=== PATIENT | female | born 1940 | race Caucasian/White ===

== ENCOUNTER → 2017-05-03 | Outpatient (CLI) | payer OTHER ==
[~2017-05-03] VITALS: Ht 165.1 cm; Wt 97.9 kg
[~2017-05-03] MED LIST: ADVAIR 250-501 EACH INH; ADVAIR 500-501 EACH INH; ALBUTEROL2.5 MG/31 INH; AMARYL2 MG PO; ANASTROZOLE1 MG PO; ASPIR 8181 MG PO; ASPIRIN EC81 M1 PO; AZITHROMYCIN 2250 MG PO; CALCIUM 600 +1 EA11 PO; CALCIUM PO; CELEBREX 200 M200 M1 PO; CELEXA 20 MG TA20 M1 PO; CELEXA 20 MG TA20 MG PO; CINNAMON PO; CPAP MISCELL; CYMBALTA30 MG PO; FISH OIL 1,0001 EAC5 PO; FISH OIL 1,001000 M2 PO; HYDRALAZINE 5050 MG PO; HYDROCHLOROTHIA25 M2 PO; INCRUSE ELLI62.5 MCG IH; KEFLEX500 MG PO; LEVAQUIN 500 M500 M1 PO; LIPITOR10 MG PO; LISINOPRIL20 MG PO; MELOXICAM15 MG PO; MUCINEX TA600 MG/TA2 PO; MULTIVITAMINS PO; NEURONTIN 300300 M1 PO; NEXIUM40 MG PO; NORCO 5-325 TA1 EACH PO; NORFLEX100 MG PO; OMEGA 3-6-9 CO400 MG PO; OMEGA-31000 M1 PO; OMEPRAZOLE 20 M20 M1 PO; OMEPRAZOLE 20 M20 MG PO; OMEPRAZOLE40 MG PO; OXYBUTYNIN 5 MG5 M2 PO; PAXIL10 MG PO; PRAVACHOL40 MG PO; PREDNISONE 10 M10 M1 PO; PREDNISONE 10 M10 MG PO; PREDNISONE 20 M20 M1 PO; PREDNISONE 20 M20 MG PO; PRILOSEC40 MG PO; PROBIOTIC1 EAC1 PO; PROTONIX40 M2 PO; QUINU10 PD; RANITIDINE 150150 MG PO; SINGULAIR 10 MG10 M1 PO; SPIRIVA INH; SULINDAC 200MG200 M1 PO; THEOPHYLLINE S200 M1 PO; TRAMADOL 50 MG50 MG PO; TYLENOL W/CODEI1 TA2 PO; VENTOLIN HFA 1818 GM INH; ZANTAC 150MG T150 MG PO; calcium
--- NOTE | ~2017-05-03 | HPC ---
[facility] [address] [place] [address] PAIN MANAGEMENT CONSULTATION Name: SHAGGY VILLARREAL Room #: REG [facility].#: [id number] Admission: 05/03/17 Attend Phys: Flavio Hutchins DO Discharge: Date of : 38 Report #: [id number] THIS REPORT FOR: //name// CC: Flavio Cheng MD DATE OF SERVICE: 05/03/2017 REFERRING PHYSICIAN: Fabrizio Cheng MD CHIEF COMPLAINT: Low back pain, left lower extremity pain and paresthesias. HISTORY OF PRESENT ILLNESS: As you know, the patient is a 76-year-old female who has had a longstanding history of low back pain, left lower extremity pain with paresthesias. The patient indicates pain began on April 13. The patient indicates pain began in low back, radiated down the left leg. She indicates that despite conservative medical therapy through her PCP, she has not seen improvement in symptoms. She has been referred to our clinic for suspected lumbar radiculopathy, she comes without imaging studies to assist diagnosis and treatment. She indicates today pain is steady and constant, describes the pain as burning, shooting, aching, throbbing, stabbing, pounding, sharp and tender, places current pain score 10/10, daily average at 10/10, worst pain has been is 10/10. The patient states that standing, walking, and sitting exacerbate symptoms, nothing tends to improve pain. She has been referred to our service by her primary care physician for evaluation. PAST MEDICAL HISTORY: 1. Diabetes mellitus type 2. 2. Asthma. 3. Hypertension. 4. Degenerative joint disease. 5. Osteoarthritis. 6. History of cancer. PAST SURGICAL HISTORY: 1. Lumpectomy. 2. Neck surgery. 3. Hysterectomy. SOCIAL HISTORY: The patient denies tobacco, alcohol, IV or illicit drug use. 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 She has been out of work for nearly a month secondary to ongoing pain issues. She indicates she is not receiving workmen's compensation nor is she trying to obtain disability benefits. She is accompanied by her daughter who is present in room today. [address] [address] PAIN MANAGEMENT CONSULTATION Name: SHAGGY VILLARREAL Room #: REG [facility] Sally#: [id number] Admission: 05/03/17 Attend Phys: Flavio Hutchins DO Discharge: Date of : 38 Report #: [id number] REVIEW OF SYSTEMS: Positive for fatigue and weakness, wearing corrective eyewear, mouth sores, shortness of breath with walking or lying flat, asthma, wheezing, frequent urination, incontinence and dribbling to urine, varicose veins, depression, non-insulin dependent diabetes, heat and cold intolerance, low back pain, left lower extremity pain with paresthesias, difficulty with ambulation secondary to pain. All other review of systems negative per 12-point review of systems other than those listed in history of present illness. PAIN IMPACT SCORE: 59/70 indicating severe interference of daily activities secondary to pain. ALLERGIES: IODINE and SHELLFISH. CURRENT MEDICATIONS: Tylenol 3 one tab every 6 hours p.r.n. for pain, gabapentin 300 mg twice a day, omega-3 fish oil 1 tab per day, tiotropium bromide 1 inhalation kit per day, Advair 250/50 one puff b.i.d., albuterol 2 puffs q.4 hours p.r.n., aspirin 81 mg per day, Meloxicam 15 mg once a day, hydrochlorothiazide 25 mg per day, simvastatin 10 mg per day, omeprazole 20 mg per day, duloxetine 30 mg once a day. PQRS: The patient does have a history of osteoarthritis, no rheumatoid arthritis. She is not a fall risk, has not had a fall in the past 3 months. She ambulates well. She is not on blood thinners. She does have no history of hypertension, though blood pressure is elevated today. Risk assessment tool shows as a low risk for opioid abuse. Functional assessment tool shows a 59/70, severe interference. PHYSICAL EXAMINATION: VITAL SIGNS: Blood pressure 146/66, pulse 89, respiratory rate 20 and unlabored, the patient is 97% on room air, height 5 feet 5 inches tall, weight 215.8 pounds, and BMI calculated 35.9. GENERAL: Well-developed, well-nourished, well-hydrated, exogenously obese 76-year-old female, she appears her stated age, placing current pain score 10/10. HEENT: Normocephalic, atraumatic. Pupils are equal, round, and reactive to light. Extraocular muscles are intact. Sclerae are nonicteric without injection. NEUROLOGIC: Cranial nerves 2-12 are grossly intact. Speech is fluent. The patient deemed a fair historian. LUNGS: Clear, no wheeze, rhonchi or rales. CARDIOVASCULAR: Regular. No appreciable gallop or rub. ABDOMEN: Soft, obese, nontender, nondistended, normoactive bowel sounds. EXTREMITIES: Show no clubbing, no cyanosis, and no edema. MUSCULOSKELETAL: Seated straight leg raising negative. Supine straight leg raising mildly positive left. Roxann's test negative. Gait is mildly antalgic favoring left lower extremity over right. Ankle clonus negative. Babinski is [address] [place] [address] PAIN MANAGEMENT CONSULTATION Name: SHAGGY VILLARREAL Room #: REG [facility]#: [id number] Admission: 05/03/17 Attend Phys: Flavio Hutchins DO Discharge: Date of : 38 Report #: [id number]. Deep tendon reflexes are symmetrical at patella and Achilles. Lumbar provocation testing including extension, rotation, and lateral flexion all intensify axial back pain, no radiation of symptoms. ASSESSMENT: 1. Lumbar radiculopathy. 2. Degeneration of the lumbar spine. 3. Left lower extremity peripheral neuropathy. 4. Chronic intractable pain. PLAN: 1. The patient has been referred to our service with low back pain, left lower extremity pain with paresthesias. Unfortunately, the patient comes to us today without definitive imaging studies. She has had some conservative treatment options at her home, but has not filled a formalized physical therapy program. She is currently on Meloxicam, which is helping with her baseline osteoarthritis, but has provided no improvement in symptoms of her low back and left lower extremity symptoms. She has been referred to discuss options for treatment for suspected lumbar radiculopathy. The patient and I discussed at length the general treatment options for lumbar radiculopathy. These would include physical therapy, stretching exercise, core strengthening and a concerted effort at weight loss. We discussed medication changes, increasing her gabapentin to help with neuropathic pain control. We discussed epidural injections under fluoroscopic guidance and surgical options. After this discussion, we did determine that further imaging would be necessary before moving forward with. The patient will be sent for MRI of lumbar spine without contrast. Once this has been completed, the patient will return to review the findings and discuss options for treatment based on the specific pathology that is present. The patient was amenable to this idea and does wish to move forward with imaging before undergoing any interventional treatments. 2. No medication changes were made at today's visit. The patient will continue current medical therapy as previously prescribed. 3. The patient will return to our clinic once she has completed her imaging study. We will review the findings at that time and discuss specifics based on the pathology that is noted in the imaging. 4. We wish to thank Dr. Cheng for the referral of this patient to our clinic, we will keep you apprised of her response to treatment as we address suspected lumbar radiculopathy. Again, we wish to thank you for the opportunity to see this patient in consultation. <ELECTRONICALLY SIGNED> By: Flavio Hutchins DO 05/11/17 1130 [id number] [id number] Flavio Hutchins DO /nt
[2017-05-03 13:44] VITALS: BP 146/66
== END ==
LOC: PAIN 07:15
DX: M54.16 Radiculopathy, lumbar region (principal); M47.896 Other spondylosis, lumbar region; G89.29 Other chronic pain; G62.89 Other specified polyneuropathies; E11.9 Type 2 diabetes mellitus without complications; J45.909 Unspecified asthma, uncomplicated; I10 Essential (primary) hypertension; Z90.710 Acquired absence of both cervix and uterus; Z98.890 Other specified postprocedural states

== ENCOUNTER → 2017-05-10 | Outpatient (CLI) | payer OTHER ==
[~2017-05-10] VITALS: Ht 170.2 cm; Wt 98.0 kg
--- NOTE | ~2017-05-10 | HPC ---
[facility] [place] [address] PAIN MANAGEMENT CONSULTATION Name: SHAGGY VILLARREAL [facility] [id number] Admission: 05/10/17 Attend Phys: Flavio Hutchins DO Discharge: Date of : 38 Report #: [id number] THIS REPORT FOR: //name// CC: Flavio Cheng MD DATE OF SERVICE: 05/10/2017 REFERRING PHYSICIAN: Fabrizio Cheng M.D. CHIEF COMPLAINT: Low back pain, left lower extremity pain and paresthesias. HISTORY OF PRESENT ILLNESS: As you know, the patient is a 76-year-old female with longstanding history of low back pain. She has left lower extremity pain. The patient was last seen in our clinic per the request of her primary care physician for evaluation for suspected lumbar radiculopathy. The patient did not have any imaging studies available and she was subsequently sent for MRI. She returns today in followup visit with MRI imaging now reporting a loss of bladder continence and fecal incontinence. She indicates pain now at a level of 9/10, states pain is constant, shooting, sharp, stabbing and numbing in sensation, exacerbated with walking, standing, sitting. Nothing appears to improve the symptoms. She has been brought back to our clinic today with MRI that was obtained yesterday. Discussed options for treatment. ALLERGIES: IODINE AND SHELLFISH. CURRENT MEDICATIONS: Tylenol No. 3, gabapentin, omega 3 fish oil, tiotropium bromide, fluticasone, albuterol, aspirin, Meloxicam, hydrochlorothiazide, atorvastatin, omeprazole, duloxetine. SOCIAL HISTORY: The patient denies current tobacco use. Denies IV or illicit drug use. She was working until a month ago. She is accompanied by her daughter who is present in the room today. IMAGING: MRI of the lumbar spine obtained 05/09/2017, shows L1-L2 with facet arthropathy. No central canal neural foraminal stenosis. L2-L3, there is a disk protrusion, annular tear at the level. There is a 10-mm epidural mass, left lateral recess extending into the left neural foramen which is likely the basis of extrusion, results in severe left neural foraminal stenosis with effacement. L3-L4 facet arthropathy without spinal canal neural foraminal stenosis. L4-L5 grade 1 anterolisthesis secondary to advanced osteoarthritis, bilateral subarticular zone stenosis, mild central canal stenosis, L5-S1 facet arthropathy, otherwise normal. PQRS: The patient has a history of osteoarthritis, [place] [address] PAIN MANAGEMENT CONSULTATION Name: SHAGGY VILLARREAL Room #: REG [facility] Sally#: [id number] Admission: 05/10/17 Attend Phys: Flavio Hutchins DO Discharge: Date of : 38 Report #: [id number] She is not a fall risk, has not had a fall in the last 3 months, but does indicate weakness bilaterally, left greater than right in the lower extremities. She is not on a blood thinner. She has no history of hypertension. She has been on opioid therapy for greater than 6 weeks. She is not on opioid contract with our services. PHYSICAL EXAMINATION: VITAL SIGNS: Blood pressure 143/79, pulse 84, respiratory rate 15, unlabored. The patient is 95% on room air. Height 5 feet 7 inches tall, weight 216 pounds, BMI calculated 33.8. GENERAL: Well-developed, well-nourished, well-hydrated exogenously obese 76-year-old female. She appears stated age, placing current pain score 9/10. HEENT: Normocephalic, atraumatic. Pupils equal, round, reactive to light. Extraocular muscles are intact. Sclerae nonicteric, without injection. EXTREMITIES: Show no clubbing, no cyanosis, no edema. MUSCULOSKELETAL: There is bilateral lower extremity equal and symmetrical muscle tone, mild give-away strength on the left when compared to the right. This is noted with increasing left leg pain. Seated straight leg raising positive on the left. Supine straight leg raising positive on the left. Roxann test negative. Modified Gaenslen's positive for axial low back pain. ASSESSMENT: 1. Symptomatic lumbar radiculopathy. 2. Spinal stenosis of lumbar spine. 3. Displacement of lumbar intervertebral disk with radiculopathy. 4. Lumbosacral spondylosis with radiculopathy. 5. Facet arthropathy of lower lumbar spine. 6. Neural foraminal stenosis of lumbar spine. 7. Chronic intractable pain. PLAN: 1. The patient has returned today in followup visit where we have sat and discussed the findings on the MRI. After completing the discussion of the MRI with the findings at the L2-L3 level most concerning, the patient reports that she has had a loss of bladder function. This has progressively worsened over the past month and now is having difficulty maintaining urinary control. She also relays information recently of a complete loss of bowel without having any sensation that she had a bowel movement. She apparently returned home where she noted fecal material within the underwear. The combination of bowel and bladder incontinence along with the increasing weakness the patient experiencing is quite concerning of a central canal stenosis with early development of possible Cauda equina syndrome though the patient is experiencing numbness and tingling in the perineal area, she is now experiencing increasing bladder incontinence beyond her typical stress incontinence, this in conjunction with the new bowel incontinence has made this case more concerning. I have taken the liberty of contacting neurosurgery in regards to the patient's condition. I do feel that [facility] [address] [place] [address] PAIN MANAGEMENT CONSULTATION Name: SHAGGY VILLARREAL Room #: REG [facility] Taryn.#: [id number] Admission: 05/10/17 Attend Phys: Flavio Hutchins DO Discharge: Date of : 38 Report #: [id number] early intervention in this patient's case would be most important, certainly interventional treatment such as epidurals may improve the patient's symptoms, but given the new bowel and bladder issues and the increasing numbness and tingling in the perineal area, I am very concerned of early onset of Cauda equina syndrome and I do feel the patient needs to be evaluated further. After discussion with the neurosurgery team, they advised the patient to head directly to [facility] ER where they can evaluate the patient more fully. I have requested the patient take the MRI disk and official interpretation with her to the ER to present when she gets there. The MRI is only a day old and that should give the physicians enough information. 2. I have made no changes in the patient's medical therapy. She is to continue current medical therapy as previously prescribed. 3. We will see the patient back in followup visit on an as-needed basis. Certainly, we will be available if surgery options are not recommended at this time for a possible epidural injection, though given the incontinence to both bowel and bladder, I am concerned of progressively worsening symptoms that need to be addressed surgically. We will await the discussion with neurosurgery. <ELECTRONICALLY SIGNED> By: Flavio Hutchins DO 05/11/17 1131 1246 1619 Flavio Hutchins DO /nt
[2017-05-10 11:30] VITALS: BP 143/79
== END ==
LOC: PAIN 06:48
DX: M48.061 Spinal stenosis, lumbar region without neurogenic claudication (principal); M51.16 Intervertebral disc disorders with radiculopathy, lumbar region; M47.27 Other spondylosis with radiculopathy, lumbosacral region; G89.29 Other chronic pain

== ENCOUNTER 2017-10-06 12:01 | Inpatient (IN) | payer OTHER ==
[~2017-10-06] VITALS: Ht 170.2 cm; Wt 109.4 kg
--- NOTE | ~2017-10-06 | EKG ---
[place] [address] [facility] [place] [address] ELECTROCARDIOGRAM REPORT Name: SHAGGY VILLARREAL Room #: REG [facility]#: [id number] Admission: 10/06/17 Attend Phys: Discharge: Date of : 38 Report #: [id number] THIS REPORT FOR: //name// [facility] ED Test Date: 2017-10-06 Test Time: 12:16:35 Pat Name: SHAGGY VILLARREAL Department: Room: Gender: F Perforator Loader: [email or web address] : 1940 Requested By: Gemma Burton Order Number: [id number] MD: Dano Velasco Measurements Intervals [place] Rate: 96 P: 73 [place]: 143 QRS: 38 QRSD: 91 T: 52 QT: 351 QTc: 444 Interpretive Statements Sinus rhythm Minimal ST elevation, lateral leads Compared to ECG 05/26/2016 10:16:39 ST (T wave) deviation now present Sinus tachycardia no longer present Electronically Signed On 10-06-2017 13:10:05 CDT by Dano Velasco [email or web address] <ELECTRONICALLY SIGNED> By: Dano Velasco MD 10/06/17 1310 15 15 Dano Velasco MD /ANNIE
--- NOTE | ~2017-10-06 | H ---
[facility] [place] [address] HISTORY AND PHYSICAL Name: SHAGGY VILLARREAL Room #: 200-I ADM IN .R.#: [id number] Admission: 10/06/17 Attend Phys: Darvin Lebron MD Discharge: Date of : 38 Report #: [id number] THIS REPORT FOR: //name// CC: Fabrizio Lebron DATE OF SERVICE: 10/06/2017 CHIEF COMPLAINT: Shortness of breath. HISTORY OF PRESENT ILLNESS: The patient is a 77-year-old female with history of COPD and asthma who presented to the Emergency Room complaining of shortness of breath. Symptoms have been ongoing over the last 1 week. She has had cough, which is mostly dry, had a little subjective fever and chills. She has been using an inhaler at home without any relief. She had mild sore throat. No chest pain. No nausea, vomiting, abdominal pain. No recent travel. PAST MEDICAL HISTORY: Significant for hysterectomy, neck surgery, lumpectomy, COPD and asthma, history of dyslipidemia. No history of any coronary artery disease, no CVA. No peptic ulcer disease, bleeding disorder. ALLERGIES: SHE IS ALLERGIC TO IODINE AND SHELLFISH. SOCIAL HISTORY: No smoking, alcohol abuse, or illicit drug abuse. FAMILY HISTORY: Significant for hypertension. REVIEW OF SYSTEMS: CONSTITUTIONAL: No recent weight loss, weight gain. She has had some subjective fever and chills. EYES: No change in vision. THROAT: Mild sore throat. CARDIOVASCULAR: No chest pain, dizziness, palpitations. RESPIRATORY: As above. GASTROINTESTINAL: As above. No nausea or vomiting. GENITOURINARY: No dysuria, hematuria. NEUROLOGIC: No focal numbness or weakness of the extremities. PSYCHIATRIC: No anxiety or depression. The 12-point review of system is negative other than the positives and negatives dictated in the history of present illness and the review of system. PHYSICAL EXAMINATION: VITAL SIGNS: Reveal blood pressure 124/61, heart rate is in the 100 per minute, [address]febrile. [facility] [address] [place] [address] HISTORY AND PHYSICAL Name: SHAGGY VILLARREAL Room #: 200-I [facility] ..#: [id number] Admission: 10/06/17 Attend Phys: Darvin Lebron MD Discharge: Date of : 38 Report #: [id number] GENERAL: The patient is awake and alert. Presently, she is saturating 92% on 2 liters of oxygen. She is in mild respiratory distress. EYES: Pupils equal, reactive to light, nonicteric conjunctivae. NECK: Supple, no JVD, no bruit, no lymphadenopathy. CARDIOVASCULAR SYSTEM: S1, S2, negative S3, no murmur. CHEST: Bilateral air entry present. Expiration prolonged bilateral wheeze present. ABDOMEN: Soft, bowel sounds present, no mass, no organomegaly, no tenderness. PERIPHERY: No pedal edema, no calf tenderness. Dorsalis pedis 1+. NEUROLOGICAL: No gross motor or sensory deficit. LABORATORY DATA: Reviewed. Chest x-ray showed no acute process. White count is 8 with normal hemoglobin, hematocrit and platelets. Blood gas showed a pH of 7.45, pCO2 of 50 and pO2 of 68. Chemistry revealed a BUN of 21, creatinine of 1.3. Magnesium is 1.6. AST and ALT are within normal limits. ASSESSMENT AND PLAN: 1. Ibbka-wc-yinzdrm respiratory failure secondary to chronic obstructive pulmonary disease exacerbation. 2. Chronic obstructive pulmonary disease exacerbation. The patient will be continued on IV steroid and nebulizer treatment. The patient is also empirically started on IV antibiotic. Pulmonary will be consulted 3. Hypertension. The patient will be continued on hydrochlorothiazide. 4. Dyslipidemia. We will continue statin. 5. Deep venous thrombosis prophylaxis. She will be on Lovenox for deep venous thrombosis prophylaxis. 6. Hypomagnesemia. We will replace mag. 7. Mild elevation in lactic acid, likely secondary to her respiratory distress. We will repeat a lactic acid in 3 hours. <ELECTRONICALLY SIGNED> By: Darvin Lebron MD 10/07/17 1910 1645 6509 Darvin Lebron MD /nt
[~2017-10-06 12:01] MED LIST changes: -CPAP MISCELL; -HYDRALAZINE 5050 MG PO; -LISINOPRIL20 MG PO; -PREDNISONE 20 M20 M1 PO; -PREDNISONE 20 M20 MG PO
[2017-10-06 12:04] VITALS: BP 124/61
[2017-10-06] MEDS ORDERED: CPAP MISCELL ×2 (12:08→12:09)
[2017-10-06 12:34] LABS: ABSOLUTE NEUTROPHILS 4.6 thou/uL (1.4-8.2); BASOPHILS 0.9 % (0.0-2.0); EOSINOPHILS 5.8 % (0.0-3.0); HEMATOCRIT 36.9 % (37.0-47.0); HEMOGLOBIN 12.5 gm/dL (12.0-15.0); MCH 30.6 pg (26.0-34.0); MONOCYTES 8.3 % (1.0-8.0); PLATELET COUNT 224 thou/uL (150-400); RDW 13.4 % (10.5-14.5)
[2017-10-06 12:39] LABS: ANION GAP 5 mmol/L (7-16); BUN 21 mg/dL (7-18); CALCIUM 9.2 mg/dL (8.5-10.1); CHLORIDE 104 mmol/L (98-107); CO2 32 mmol/L (21-32); CREATININE 1.3 mg/dL (0.6-1.0); GLUCOSE 141 mg/dL (74-106); POTASSIUM 3.8 mmol/L (3.5-5.1); SODIUM 141 mmol/L (136-145)
[2017-10-06 12:48] LABS: ALBUMIN 3.4 g/dL (3.4-5.0); MAGNESIUM 1.6 mg/dL (1.8-2.4); SGOT 28 U/L (15-37); SGPT 29 U/L (30-65); TOTAL BILIRUBIN 0.3 mg/dL (<0.1-1.0); TOTAL PROTEIN 7.2 g/dL (6.4-8.2); TROPONIN-I <0.06 ng/mL (<0.06)
[2017-10-06 13:01] LABS: BE(vivo) 4.9 mmol/L (-2 to +3); HCO3 30.7 mmol/L (22.0-26.0); PCO2 50.2 mmHg (35.0-45.0); PO2 68.1 mmHg (80.0-100.0); pH 7.404 (7.360-7.450); sO2 93.5 % (92.0-98.0)
[2017-10-06 19:28] VITALS: BP 131/69
[2017-10-06 19:53] VITALS: BP 144/69
[2017-10-06 23:59] VITALS: BP 145/65
[2017-10-07 04:17] VITALS: BP 132/74
[2017-10-07 07:21] VITALS: BP 153/56
[2017-10-07 11:10] VITALS: BP 142/45
[2017-10-07 16:10] VITALS: BP 138/42
[2017-10-07 19:21] VITALS: BP 130/65
[2017-10-08 04:48] VITALS: BP 134/71
[2017-10-08 07:33] VITALS: BP 159/80
[2017-10-08 10:31] LABS: ABSOLUTE NEUTROPHILS 14.8 thou/uL (1.4-8.2); BASOPHILS 0.1 % (0.0-2.0); HEMATOCRIT 39.1 % (37.0-47.0); HEMOGLOBIN 12.6 gm/dL (12.0-15.0); LYMPHOCYTES 6.8 % (24.0-44.0); MCHC 32.3 g/dL (28.0-37.0); MCV 92.8 fL (80.0-100.0); MONOCYTES 3.2 % (1.0-8.0); PLATELET COUNT 250 thou/uL (150-400); POLYS 89.9 % (36.0-66.0); RBC 4.21 mil/uL (4.20-5.00); WBC 16.5 thou/uL (4.0-11.0)
[2017-10-08 10:47] LABS: ALBUMIN 3.4 g/dL (3.4-5.0); CALCIUM 9.2 mg/dL (8.5-10.1); CREATININE 1.3 mg/dL (0.6-1.0); PHOSPHORUS 2.7 mg/dL (2.5-4.9); POTASSIUM 4.2 mmol/L (3.5-5.1)
[2017-10-08 12:12] VITALS: BP 125/63
[2017-10-08 15:23] VITALS: BP 111/58
[2017-10-08 19:10] VITALS: BP 142/72
[2017-10-09 04:00] VITALS: BP 150/82
[2017-10-09 07:02] LABS: HEMATOCRIT 39.1 % (37.0-47.0); HEMOGLOBIN 13.3 gm/dL (12.0-15.0); MCH 31.4 pg (26.0-34.0); MCHC 34.1 g/dL (28.0-37.0); MCV 92.2 fL (80.0-100.0); PLATELET COUNT 249 thou/uL (150-400); RBC 4.25 mil/uL (4.20-5.00); RDW 13.7 % (10.5-14.5)
[2017-10-09 07:13] LABS: CREATININE 1.1 mg/dL (0.6-1.0); POTASSIUM 4.1 mmol/L (3.5-5.1)
[2017-10-09 07:37] VITALS: BP 163/72
[2017-10-09 08:33] LABS: ABSOLUTE NEUTROPHILS 10.8 thou/uL (1.4-8.2)
[2017-10-09 08:34] LABS: ANISOCYTOSIS SLIGHT; METAMYELOCYTES 1 %; POLYCHROMASIA OCCASIONAL
[2017-10-09 11:43] VITALS: BP 148/74
[2017-10-09 16:53] VITALS: BP 130/68
[2017-10-09 19:05] VITALS: BP 124/71
[2017-10-10 03:25] VITALS: BP 143/78
[2017-10-10 05:43] LABS: HEMATOCRIT 38.9 % (37.0-47.0); MCH 30.7 pg (26.0-34.0); MCHC 33.3 g/dL (28.0-37.0); MCV 92.1 fL (80.0-100.0); PLATELET COUNT 260 thou/uL (150-400); RBC 4.22 mil/uL (4.20-5.00); RDW 13.7 % (10.5-14.5); WBC 12.8 thou/uL (4.0-11.0)
[2017-10-10 05:57] LABS: CALCIUM 8.8 mg/dL (8.5-10.1); CREATININE 1.2 mg/dL (0.6-1.0); POTASSIUM 4.2 mmol/L (3.5-5.1)
[2017-10-10 07:11] VITALS: BP 155/67
[2017-10-10 08:23] LABS: ABSOLUTE NEUTROPHILS 10.6 thou/uL (1.4-8.2); PLATELET ESTIMATE NORMAL
[2017-10-10 11:37] VITALS: BP 104/75
[2017-10-10 15:57] VITALS: BP 145/77
[2017-10-10 19:31] VITALS: BP 149/74
[2017-10-11 03:41] VITALS: BP 149/73
[2017-10-11 04:30] LABS: HEMATOCRIT 38.9 % (37.0-47.0); MCH 30.5 pg (26.0-34.0); MCHC 33.3 g/dL (28.0-37.0); MCV 91.6 fL (80.0-100.0); PLATELET COUNT 244 thou/uL (150-400); RBC 4.25 mil/uL (4.20-5.00); RDW 13.7 % (10.5-14.5)
[2017-10-11 04:32] LABS: CALCIUM 8.9 mg/dL (8.5-10.1); CREATININE 1.3 mg/dL (0.6-1.0); POTASSIUM 4.3 mmol/L (3.5-5.1)
[2017-10-11 05:28] LABS: ABSOLUTE NEUTROPHILS 9.6 thou/uL (1.4-8.2); ATYPICAL LYMPHS 1 %; METAMYELOCYTES 2 %; MYELOCYTES 1 %
[2017-10-11 07:03] VITALS: BP 150/87
[2017-10-11] MEDS ORDERED: VENTOLIN HFA 1818 GM INH (12:17)
[2017-10-11] MEDS ORDERED: PREDNISONE 20 M20 MG PO (12:19)
[2017-10-11 12:24] VITALS: BP 137/69
[2017-10-11 12:33] VITALS: BP 150/87
[2017-10-11 12:49] VITALS: BP 150/87
[2017-10-11 13:25] VITALS: BP 150/87
== END 2017-10-11 13:45 | disposition home health service (06) | DRG 682 ==
LOC: ER 12:01 → 2N 13:51 → EROBS 13:51 → 2N 18:51
PROVIDERS: Hospitalist; Nurse Practitioner Family
DX: N17.9 Acute kidney failure, unspecified (principal); J96.21 Acute and chronic respiratory failure with hypoxia; J44.1 Chronic obstructive pulmonary disease with (acute) exacerbation; E83.42 Hypomagnesemia; R74.0 Nonspecific elevation of levels of transaminase and lactic acid dehydrogenase [LDH]; G47.33 Obstructive sleep apnea (adult) (pediatric); N18.9 Chronic kidney disease, unspecified; I12.9 Hypertensive chronic kidney disease with stage 1 through stage 4 chronic kidney disease, or unspecified chronic kidney disease; E78.00 Pure hypercholesterolemia, unspecified; F41.0 Panic disorder [episodic paroxysmal anxiety]; K21.9 Gastro-esophageal reflux disease without esophagitis; E66.9 Obesity, unspecified; G89.29 Other chronic pain; Z68.37 Body mass index [BMI] 37.0-37.9, adult; Z90.710 Acquired absence of both cervix and uterus; Z79.51 Long term (current) use of inhaled steroids; Z79.82 Long term (current) use of aspirin; Z79.899 Other long term (current) drug therapy; Z91.041 Radiographic dye allergy status; Z91.013 Allergy to seafood; Z82.49 Family history of ischemic heart disease and other diseases of the circulatory system
CPT/HCPCS: 10081

== ENCOUNTER 2018-01-23 13:00 | Inpatient (IN) | payer OTHER ==
[~2018-01-23] VITALS: Ht 170.2 cm; Wt 101.6 kg
--- NOTE | ~2018-01-23 | EKG ---
[address] [address] ELECTROCARDIOGRAM REPORT Name: SHAGGY VILLARREALBERNY Room #: PRE [facility]#: [id number] Admission: Attend Phys: Discharge: Date of : 38 Report #: [id number] THIS REPORT FOR: //name// [facility] ED Test Date: 2018-01-23 Test Time: 13:19:24 Pat Name: SHAGGY VILLARREAL Department: Room: Gender: F Stereo Operator: LATANYA : 1940 Requested By: Lonnie Rice Order Number: [id number] MD: Dano Velasco Measurements Intervals [place] Rate: 119 P: 54 SD: 146 QRS: 49 QRSD: 84 T: 47 QT: 311 QTc: 438 Interpretive Statements Sinus tachycardia Probable left atrial enlargement Compared to ECG 10/06/2017 12:16:35 Sinus rhythm no longer present ST (T wave) deviation no longer present Electronically Signed On 01-23-2018 13:31:25 CDT by Dano Velasco [email or web address] <ELECTRONICALLY SIGNED> By: Dano Velasco MD 01/23/18 1331 1319 18 Dano Velasco MD /ANNIE
[~2018-01-23 13:00] MED LIST changes: +CPAP MISCELL; +PREDNISONE 20 M20 MG PO
[2018-01-23 13:02] VITALS: BP 141/66
[2018-01-23 13:51] LABS: HEMOGLOBIN 11.4 gm/dL (12.0-15.0); MCH 30.3 pg (26.0-34.0); MCHC 33.6 g/dL (28.0-37.0); PLATELET COUNT 285 thou/uL (150-400); RBC 3.78 mil/uL (4.20-5.00); RDW 14.1 % (10.5-14.5)
[2018-01-23 13:54] LABS: BE(vivo) 6.8 mmol/L (-2 to +3); HCO3 30.6 mmol/L (22.0-26.0); PCO2 40.8 mmHg (35.0-45.0); PO2 59.2 mmHg (80.0-100.0); pH 7.493 (7.360-7.450); sO2 92.6 % (92.0-98.0)
[2018-01-23 14:02] LABS: ANION GAP 9 mmol/L (7-16); BUN 21 mg/dL (7-18); CALCIUM 9.4 mg/dL (8.5-10.1); CHLORIDE 96 mmol/L (98-107); CO2 31 mmol/L (21-32); CREATININE 1.4 mg/dL (0.6-1.0); GLUCOSE 149 mg/dL (74-106); POTASSIUM 3.8 mmol/L (3.5-5.1); SODIUM 136 mmol/L (136-145)
[2018-01-23 14:10] LABS: ALBUMIN 2.7 g/dL (3.4-5.0); SGOT 41 U/L (15-37); SGPT 39 U/L (30-65); TOTAL BILIRUBIN 0.5 mg/dL (<0.1-1.0); TOTAL PROTEIN 7.8 g/dL (6.4-8.2); TROPONIN-I <0.06 ng/mL (<0.06)
[2018-01-23 14:14] LABS: ABSOLUTE NEUTROPHILS 14.6 thou/uL (1.4-8.2)
[2018-01-23 14:15] LABS: PLATELET ESTIMATE NORMAL
[2018-01-23 18:39] VITALS: BP 132/52
[2018-01-23 19:08] LABS: URINE BILIRUBIN NEGATIVE (Negative); URINE BLOOD NEGATIVE (Negative); URINE CLARITY CLEAR; URINE COLOR YELLOW; URINE GLUCOSE-RANDOM* NEGATIVE (Negative); URINE KETONES NEGATIVE (Negative); URINE LEUKOCYTES-REFLEX NEGATIVE (Negative); URINE NITRITE-REFLEX NEGATIVE (Negative); URINE PROTEIN (DIPSTICK) NEGATIVE (Negative); URINE SPECIFIC GRAVITY <= 1.005 (1.005-1.035); URINE UROBILINOGEN 0.2 E.U./dl (0.2-1.0)
[2018-01-23 19:16] VITALS: BP 147/83
[2018-01-23 20:57] VITALS: BP 155/65
[2018-01-24 05:19] VITALS: BP 143/63
[2018-01-24 05:58] LABS: HEMOGLOBIN 9.9 gm/dL (12.0-15.0); MCH 30.3 pg (26.0-34.0); MCHC 32.9 g/dL (28.0-37.0); MCV 92.1 fL (80.0-100.0); RBC 3.26 mil/uL (4.20-5.00); RDW 14.3 % (10.5-14.5); WBC 16.9 thou/uL (4.0-11.0)
[2018-01-24 06:19] LABS: CALCIUM 8.6 mg/dL (8.5-10.1); POTASSIUM 3.7 mmol/L (3.5-5.1)
[2018-01-24 08:00] VITALS: BP 159/62
[2018-01-24 11:55] VITALS: BP 159/62
[2018-01-24 17:13] VITALS: BP 145/85
[2018-01-24 19:38] VITALS: BP 155/50
[2018-01-25 04:52] VITALS: BP 175/54
[2018-01-25 20:00] VITALS: BP 152/56
[2018-01-26 07:32] LABS: HEMATOCRIT 32.6 % (37.0-47.0); HEMOGLOBIN 10.5 gm/dL (12.0-15.0); MCH 29.5 pg (26.0-34.0); MCHC 32.1 g/dL (28.0-37.0); MCV 91.8 fL (80.0-100.0); RBC 3.56 mil/uL (4.20-5.00); RDW 14.4 % (10.5-14.5); WBC 14.4 thou/uL (4.0-11.0)
[2018-01-26 08:10] LABS: PLATELET COUNT 348 thou/uL (150-400)
[2018-01-26 08:15] VITALS: BP 173/99
[2018-01-26 08:46] LABS: ABSOLUTE NEUTROPHILS 12.7 thou/uL (1.4-8.2); METAMYELOCYTES 1 %; PLATELET ESTIMATE NORMAL
[2018-01-26 19:46] VITALS: BP 149/74
[2018-01-27 07:14] LABS: HEMATOCRIT 32.7 % (37.0-47.0); HEMOGLOBIN 10.6 gm/dL (12.0-15.0); MCH 29.8 pg (26.0-34.0); MCHC 32.5 g/dL (28.0-37.0); MCV 91.7 fL (80.0-100.0); PLATELET COUNT 409 thou/uL (150-400); RBC 3.56 mil/uL (4.20-5.00); RDW 14.3 % (10.5-14.5); WBC 17.2 thou/uL (4.0-11.0)
[2018-01-27 07:15] VITALS: BP 161/92
[2018-01-27 08:20] LABS: ABSOLUTE NEUTROPHILS 14.6 thou/uL (1.4-8.2); PLATELET ESTIMATE INCREASED
[2018-01-27 13:09] VITALS: BP 161/92
[2018-01-27 22:07] VITALS: BP 149/81
[2018-01-28 08:15] VITALS: BP 180/91
[2018-01-28 10:51] VITALS: BP 188/89
[2018-01-28 13:10] VITALS: BP 136/76
[2018-01-28 21:32] VITALS: BP 153/70
[2018-01-29 08:01] VITALS: BP 162/76
[2018-01-29 20:06] VITALS: BP 124/73
[2018-01-29 20:11] VITALS: BP 124/73
[2018-01-30 07:40] VITALS: BP 168/82
[2018-01-30 08:45] VITALS: BP 168/82
[2018-01-30] MEDS ORDERED: HYDRALAZINE 5050 MG PO (10:33)
[2018-01-30] MEDS ORDERED: PREDNISONE 20 M20 M1 PO (10:33)
[2018-01-30] MEDS ORDERED: AZITHROMYCIN 2250 MG PO (10:33)
[2018-01-30] MEDS ORDERED: LISINOPRIL20 MG PO (10:33)
[2018-01-31 00:10] LABS: ADENOVIRUS Negative (Negative); INFLUENZA A Negative (Negative); INFLUENZA B Negative (Negative); METAPNEUMOVIRUS Negative (Negative); PARAINFLUENZA 1 Negative (Negative); PARAINFLUENZA 2 Negative (Negative); PARAINFLUENZA 3 Negative (Negative); RHINOVIRUS Negative (Negative); RSV A Negative (Negative); RSV B Negative (Negative)
== END 2018-01-30 15:28 | disposition home health service (06) | DRG 871 ==
LOC: ER 13:00 → EROBS 15:44 → 4E 15:44 → SICU 01-25 17:45 → ENTRNSPT 01-30 14:35 → EDTRNSPTSTS 01-30 14:40 → SICU 01-30 15:28
PROVIDERS: Hospitalist; Pediatrics; Physician Assistant
PROC: 5A09357 Assistance with Respiratory Ventilation, Less than 24 Consecutive Hours, Continuous Positive Airway Pressure (ICD-10-PCS; principal; 2018-01-24)
PROC: 5A09357 Assistance with Respiratory Ventilation, Less than 24 Consecutive Hours, Continuous Positive Airway Pressure (ICD-10-PCS; 2018-01-25)
PROC: 5A09357 Assistance with Respiratory Ventilation, Less than 24 Consecutive Hours, Continuous Positive Airway Pressure (ICD-10-PCS; 2018-01-26)
PROC: 5A09357 Assistance with Respiratory Ventilation, Less than 24 Consecutive Hours, Continuous Positive Airway Pressure (ICD-10-PCS; 2018-01-27)
PROC: 5A09357 Assistance with Respiratory Ventilation, Less than 24 Consecutive Hours, Continuous Positive Airway Pressure (ICD-10-PCS; 2018-01-28)
PROC: 5A09357 Assistance with Respiratory Ventilation, Less than 24 Consecutive Hours, Continuous Positive Airway Pressure (ICD-10-PCS; 2018-01-29)
DX: A41.9 Sepsis, unspecified organism (principal); J96.21 Acute and chronic respiratory failure with hypoxia; J18.9 Pneumonia, unspecified organism; N17.9 Acute kidney failure, unspecified; J44.1 Chronic obstructive pulmonary disease with (acute) exacerbation; J44.0 Chronic obstructive pulmonary disease with (acute) lower respiratory infection; I50.30 Unspecified diastolic (congestive) heart failure; J45.909 Unspecified asthma, uncomplicated; K21.9 Gastro-esophageal reflux disease without esophagitis; D64.9 Anemia, unspecified; E78.5 Hyperlipidemia, unspecified; E66.01 Morbid (severe) obesity due to excess calories; R65.20 Severe sepsis without septic shock; Z90.710 Acquired absence of both cervix and uterus; Z91.041 Radiographic dye allergy status; Z91.013 Allergy to seafood; Z79.82 Long term (current) use of aspirin; Z79.899 Other long term (current) drug therapy; Z68.35 Body mass index [BMI] 35.0-35.9, adult; Z23 Encounter for immunization
CPT/HCPCS: 10183; 10783; 15002

== ENCOUNTER → 2019-08-23 | Outpatient (CLI) | payer OTHER ==
[~2019-08-23] MED LIST changes: +HYDRALAZINE 5050 MG PO; +LISINOPRIL20 MG PO; +PREDNISONE 20 M20 M1 PO
== END ==
LOC: RAD 10:09
DX: J44.9 Chronic obstructive pulmonary disease, unspecified (principal)